=== PATIENT | female | born 2000 | race Hispanic/Latino ===

== ENCOUNTER 2024-05-15 22:23 | Emergency (ER) | payer SELFPAY ==
[2024-05-15 23:43] LABS: Influenza A by NAA Not Detected (NotDetected); Influenza B by NAA Not Detected (NotDetected); SARS-CoV-2 NAA Rapid Test DETECTED (NotDetected)
[2024-05-15] MEDS ORDERED: Ibuprofen 800 MG TAB ONE (23:46)
== END 2024-05-15 23:59 | disposition home or self-care (01) ==
LOC: ERS 22:23
DX: U07.1 COVID-19 (principal)
CPT/HCPCS: 71045